=== PATIENT | female | born 1965 ===

== ENCOUNTER 2019-08-18 05:31 | Day surgery (SDC) | payer OTHER ==
[~2019-08-18 05:31] MED LIST: CLONAZEPAM1 MG PO; FIORINAL 50-321 EACH PO; PAXIL PO; ROZEREM8 MG PO; VITAMIN D-40010 MCG PO
[2019-08-18] MEDS ORDERED: MACROBID 100 M100 MG PO (10:15)
[2019-08-18] MEDS ORDERED: ULTRACET PO (10:16)
== END 2019-08-18 13:15 | disposition home or self-care (01) ==
LOC: CIR.AMB 05:31 → ADM 10:45 → CIR.AMB 10:45
PROVIDERS: ATTEND Obstetrics & Gynecology Gynecology
DX: N81.11 Cystocele, midline (principal); N81.5 Vaginal enterocele